=== PATIENT | male | born 1970 | race Caucasian/White ===

== ENCOUNTER 2019-07-03 16:17 | Inpatient (IN) | payer MEDICAID ==
--- OUTSIDE RECORDS SUMMARY | 2019-07-03 17:21 | XMS REPORT | Continuity of Care Document ---
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 alcohol Tobacco Use Start: Unknown Patient has never smoked Recreational Drug Use Former Drug User marijuana Smoking Status Reviewed: 06/24/19 Patient has never smoked Exercise Type/Frequency Exercises regularly Allergies, Adverse Reactions, Alerts Description No Known Drug Allergies Medications Active Medications SIG Qnty Indications Ordering Provider Date Blood Pressure Kit I10 Eleonora Haque, 06/24/2019 Kit Hydroxyzine HCL 1 tablet by mouth Unknown 50mg every 6 hours as Tablets needed for anxiety Magnesium Oxide 1 by mouth once Unknown 400mg daily Capsules Immunizations Description No Information Available Vital Signs Date Vital Result Comment 06/24/2019 4:05pm Height 72 inches 6'0" Weight 150.50 lb Heart Rate 79 /min BP Systolic 154 mmHg 131/87 BP Diastolic 93 mmHg 131/87 Body Temperature 97.9 F O2 % BldC Oximetry 98 % BMI (Body Mass Index) 20.4 kg/m2 Results Test Date Facility Test Result H/L Range Note Laboratory test 06/30/2019 [facility] Free T4 1.32 ng/dL High 0.61-1.[address] ([place] [address] Thyroxine) [phone] T3 Total 181 ng/dL High 87-178 CBC Auto 06/30/2019 [facility] White Blood 5.7 10^3/uL Normal 3.5-10.[address] [place] [address] [phone] Red Blood Count 5.24 10^6/uL Normal 4.18-5.48 Hemoglobin 15.7 g/dL Normal 14.0-18.0 Hematocrit 46 % Normal 42-52 Mean Corpuscular Volume 88 fL Normal 80-94 Mean Corpuscular Hemoglobin 30 pg Normal 27-31 Mean Corpuscular HGB Conc 34 g/dL Normal 31-36 Red Cell Distribution Width 14 % Normal 10-15 Platelet Count 387 10^3/uL Normal 150-450 Mean Platelet Volume 8.0 fL Normal 7.4-10.4 Abs Neutrophils 4.0 10^3/uL Normal 1.5-7.7 Abs Lymphocytes 1.2 10^3/uL Normal 1.0-4.8 Abs Monocytes 0.5 10^3/uL Normal 0-0.8 Abs Eosinophils 0.0 10^3/uL Normal 0-0.6 Abs Basophils 0.0 10^3/uL Normal 0-0.2 Abs Nucleated RBC 0.0 10^3/uL Granulocyte % 70.9 % Lymphocyte % 20.5 % Monocyte % 8.0 % Eosinophil % 0.1 % Basophil % 0.5 % Nucleated Red Blood Cells % 0.1 Urinalysis Profile 06/30/2019 [facility] Urine Color Straw [address] [place] [address] [phone] Urine Appearance Clear Urine Specific [place] 1.004 Low 1.010-1.030 Urine pH 7.0 Normal 5-9 Urine Urobilinogen Negative Negative Urine Ketones Negative Negative Urine Protein Negative Negative Urine Leukocytes Negative Negative Urine Blood Negative Negative Urine Nitrite Negative Negative Urine Bilirubin Negative Negative Urine Glucose Negative Negative Laboratory test 06/30/2019 [facility] Anti Double <pending> finding [address] [place] [address] [phone] TSH Receptor Assay <pending> Thyroid Stimulating Igg (Tsi) <pending> HIV 1&2 p24 06/30/2019 [facility] HIV 4th Nonreactive Nonreactive Screen [address] [place] [address] [phone] Laboratory 06/30/2019 [facility] Erythrocyte 2 mm/Hr Normal 0- 14 test [place] [address] [phone] C Reactive Protein < 1.00 mg/L Normal <8.01 Basic Metabolic 06/25/2019 [facility] Sodium 139 mmol/L Normal 135-145 [place] [address] [phone] Potassium 4.7 mmol/L Normal 3.5-5.0 Chloride 106 mmol/L Normal 101-111 Co2 Carbon Dioxide 28 mmol/L Normal 22-32 Anion Gap 5 mmol/L Normal 2-11 Glucose 99 mg/dL Normal 70-100 Blood Urea Nitrogen 10 mg/dL Normal 6-24 Creatinine 0.66 mg/dL Low 0.67-1.17 BUN/Creatinine Ratio 15.2 Normal 8-20 Calcium 9.7 mg/dL Normal 8.6-10.3 Egfr Non- 129.4 >60 Egfr 156.5 >60 1 Laboratory 06/25/2019 [facility] TSH (Thyroid 0.00 Low 0.34- 5.60 test finding Stim Horm) mcIU/[place] [address] [phone] Lipid Profile 06/25/2019 [facility] Triglycerides 65 mg/dL 2 (Trig/Chol/HDL ) [place] [address] [phone] Cholesterol 174 mg/dL 3 HDL Cholesterol 43.6 mg/dL 4 LDL Cholesterol 117 mg/dL 5 Nuclear AB 06/25/2019 [facility] Nuclear Ab Positive 1:160 Abnormal 6 (Lidia) By Ifa (Lidia) by Ifa, [place] [address] IgG [phone] Lidia Titer: 1:160 Lidia Pattern: Speckled 7 1 Because ethnic data is not always readily available, this report includes an eGFR for both -Americans and non- Americans. The National Kidney Disease Education Program (NKDEP) does not endorse the use of the MDRD equation for patients that are not between the ages of 18 and 70, are , have extremes of body size, muscle mass, or nutritional status, or are non- or non-. According to the National Kidney Foundation, irrespective of diagnosis, the stage of the disease is based on the level of kidney function: Stage Description GFR(mL/min/1.73 m(2)) 1 Kidney damage with normal or decreased GFR 90 2 Kidney damage with mild decrease in GFR 60-89 3 Moderate decrease in GFR 30-59 4 Severe decrease in GFR 15-29 5 Kidney failure <15 (or dialysis) 2 Desirable: <150 Borderline High: 150-199 High: 200-499 Very High: >500 3 Desirable: <200 Borderline High: 200-239 High: >239 4 Low: <40 Desirable: 40-60 High: >60 5 Desirable: <100 Near Optimal: 100-129 Borderline High: 130-159 High: 160-189 Very High: >189 6 REFERENCE VALUE <1:80 (Negative) 7 Test Performed by: [facility] [address] [place] [address] Respite Coordinator: Julio Dickey M.D. Ph.D.; CLIA# [id number] Procedures Description No Information Available Medical Devices Description No Information Available Encounters Description No Information Available Assessments Date Code Description Provider 06/24/2019 I10 Essential (primary) hypertension Eleonora Haque MD 06/24/2019 F33.1 Major depressive disorder, recurrent, moderate Eleonora Haque MD 06/24/2019 F41.1 Generalized anxiety disorder Eleonora Haque MD 06/24/2019 F41.8 Other specified anxiety disorders Eleonora Haque MD Plan of Treatment 06/24/2019 - Eleonora Haque MDI10 Essential (primary) hypertensionNew Medication:Blood Pressure Kit -Comments:Make a log of your blood pressure reading at home and let us know in 2 weeks.Low salt diet and low processed food.F33.1 Major depressive disorder, recurrent, moderateFollow up:as needed.F41.1 Generalized anxiety disorderFollow up:as needed.F41.8 Other specified anxiety disorders Functional Status Description No Information Available Mental Status Description No Information Available Referrals Refer to Reason for Referral Status Appt Date Antione Pichardo MD Patient has new onset Hyperthyroidism. Sent [address] [place] [address] [phone]
--- OUTSIDE RECORDS SUMMARY | 2019-07-03 17:21 | XMS REPORT | Continuity of Care Document ---
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 alcohol Tobacco Use Start: Unknown Patient has never smoked Recreational Drug Use Former Drug User marijuana Smoking Status Reviewed: 07/03/19 Patient has never smoked Exercise Type/Frequency Exercises regularly Allergies, Adverse Reactions, Alerts Description No Known Drug Allergies Medications Active Medications SIG Qnty Indications Ordering Provider Date Propranolol HCL take once tablet 30tabs E05.90 Eleonora Haque, 07/03/2019 10mg twice daily. MD Tablets Methimazole take one tablet E05.90 Eleonora Haque, 07/03/2019 5mg Tablets three times a MD daily. Blood Pressure Kit I10 Eleonora Haque, 06/24/2019 Kit Hydroxyzine HCL 1 tablet by mouth Unknown 50mg every 6 hours as Tablets needed for anxiety Magnesium Oxide 1 by mouth once Unknown 400mg daily Capsules Fluoxetine HCL 1 by mouth every Unknown 40mg day Capsules Lorazepam Take 1/2 To 1 Unknown 1mg Tablets Tablet By Mouth as Needed Up To Three Times Daily Maximum Daily Dose Of 3 Per Day Immunizations Description No Information Available Vital Signs Date Vital Result Comment 07/03/2019 2:45pm Height 72 inches 6'0" Weight 149.00 lb Heart Rate 83 /min BP Systolic 150 mmHg BP Diastolic 86 mmHg Body Temperature 97.9 F O2 % BldC Oximetry 98 % BMI (Body Mass Index) 20.2 kg/m2 06/24/2019 4:05pm Height 72 inches 6'0" Weight 150.50 lb Heart Rate 79 /min BP Systolic 154 mmHg 131/87 BP Diastolic 93 mmHg 131/87 Body Temperature 97.9 F O2 % BldC Oximetry 98 % BMI (Body Mass Index) 20.4 kg/m2 Results Test Date Facility Test Result H/L Range Note Laboratory test 06/30/2019 [facility] Free T4 1.32 ng/dL High 0.61-1.[address] ([place] [address] Thyroxine) [phone] T3 Total 181 ng/dL High 87-178 CBC Auto 06/30/2019 [facility] White Blood 5.7 10^3/uL Normal 3.5-10.[address] [place] [address] [phone] Red Blood Count 5.24 10^6/uL Normal 4.18-5.48 [...] Blood Cells % 0.1 Urinalysis Profile 06/30/2019 [facility] Urine Color Straw [address] [place] [address] [phone] Urine Appearance Clear Urine Specific [place] 1.004 Low 1.010-1.030 Urine pH 7.0 Normal 5-9 Urine Urobilinogen Negative Negative Urine Ketones Negative Negative Urine Protein Negative Negative Urine Leukocytes Negative Negative Urine Blood Negative Negative Urine Nitrite Negative Negative Urine Bilirubin Negative Negative Urine Glucose Negative Negative Laboratory test 06/30/2019 [facility] Anti Double <pending> finding [place] [address] [phone] TSH Receptor Assay <pending> Thyroid Stimulating Igg (Tsi) <pending> HIV 1&2 p24 06/30/2019 [facility] HIV 4th Nonreactive Non[place] [address] [phone] Laboratory 06/30/2019 [facility] Erythrocyte 2 mm/Hr Normal 0- 14 test finding [address] [place] [address] [phone] C Reactive Protein < 1.00 mg/L Normal <8.01 Basic Metabolic 06/25/2019 [facility] Sodium 139 mmol/L Normal 135-145 [place] [address] [phone] Potassium 4.7 mmol/L Normal 3.5-5.0 Chloride 106 mmol/L Normal 101-111 Co2 Carbon Dioxide 28 mmol/L Normal 22-32 Anion Gap 5 mmol/L Normal 2-11 Glucose 99 mg/dL Normal 70-100 Blood Urea Nitrogen 10 mg/dL Normal 6-24 Creatinine 0.66 mg/dL Low 0.67-1.17 BUN/Creatinine Ratio 15.2 Normal 8-20 Calcium 9.7 mg/dL Normal 8.6-10.3 Egfr Non- 129.4 >60 Egfr 156.5 >60 1 Laboratory 06/25/2019 [facility] TSH (Thyroid 0.00 Low 0.34- 5.[address] Stim Horm) mcIU/[place] [address] [phone] Lipid Profile 06/25/2019 [facility] Triglycerides 65 mg/dL 2 (Trig/Chol/HDL [address] ) [place] [address] [phone] Cholesterol 174 mg/dL 3 HDL Cholesterol 43.6 mg/dL 4 LDL Cholesterol 117 mg/dL 5 Nuclear AB 06/25/2019 [facility] Nuclear Ab Positive 1:160 Abnormal 6 (Lidia) By If[facility] [address] (Lidia) by Ifa, [place] [address] IgG [phone] Lidia Titer: 1:160 Lidia Pattern: Speckled 7 [...] VALUE <1:80 (Negative) 7 Test Performed by: [facility] [address] [place] [address] Utilities Estimator And Drafter: Julio Dickey M.D. Ph.D.; CLIA# [id number] Procedures Description No Information Available Medical Devices Description No Information Available Encounters Description No Information Available Assessments Date Code Description Provider 07/03/2019 E05.90 Thyrotoxicosis, unspecified without thyrotoxic Molina Chavis MD crisis or storm 07/03/2019 F33.1 Major depressive disorder, recurrent, moderate Molina Chavis MD 07/03/2019 F41.1 Generalized anxiety disorder Molina Chavis MD 07/03/2019 R03.0 Elevated blood-pressure reading, without Molina Chavis MD diagnosis of hypertension 06/24/2019 I10 Essential (primary) hypertension Eleonora Haque MD 06/24/2019 F33.1 Major depressive disorder, recurrent, moderate Eleonora Haque MD 06/24/2019 F41.1 Generalized anxiety disorder Eleonora Haque MD 06/24/2019 F41.8 Other specified anxiety disorders Eleonora Haque MD Plan of Treatment 07/03/2019 - Molina Chavis MDE05.90 Thyrotoxicosis, unspecified without thyrotoxic crisis or stormNew Medication:Propranolol HCL 10 mg - take once tablet twice daily.Methimazole 5 mg - take one tablet three times a daily.New Labs:Liver Function Panel, Ordered: 07/03/19Comments:Please schedule an appointment with Dr. Pichardo. Start taking your medicine from today.Please get your blood work done today.F33.1 Major depressive disorder, recurrent, moderateComments:Continue taking prozac regularly.It will take 4-6 weeks for the pills to take effect. If you feel like hurting yourself then please go to emergency department.Referral: [facility]/[email or web address] Generalized anxiety disorderComments:Continue taking Prozac daily.R03.0 Elevated blood-pressure reading, without diagnosis of hypertensionComments:Please measure your blood pressure regularly and make a log of it.Please give us a call in 2 weeks about your blood pressure. Functional Status Description No Information Available Mental Status Description No Information Available Referrals Refer to Reason for Referral Status Appt Date [facility] Patient has Major Depression and Created anxiety with hyperthyroidism. No active suicidal thoughts. [address] [place] [address] [phone] Antione Pichardo MD Patient has new onset Hyperthyroidism. Sent [address] [address] [phone]
--- OUTSIDE RECORDS SUMMARY | 2019-07-03 17:21 | XMS REPORT | Continuity of Care Document ---
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 Organized Health Care Education/Training Program Problems Description [...] Result H/L Range Note Laboratory test 06/30/2019 [facility] Free T4 1.32 ng/dL High 0.61-1.[address] ([place] [address] Thyroxine) [phone] T3 Total 181 ng/dL High 87-178 CBC Auto 06/30/2019 [facility] White Blood 5.7 10^3/uL Normal 3.5-10.[address] [place] [address] [phone] Red Blood Count 5.24 10^6/uL Normal 4.18-5.48 [...] Blood Cells % 0.1 Urinalysis Profile 06/30/2019 [facility] Urine Color Straw [address] [place] [address] [phone] Urine Appearance Clear Urine Specific [place] 1.004 Low 1.010-1.030 Urine pH 7.0 Normal 5-9 Urine Urobilinogen Negative Negative Urine Ketones Negative Negative Urine Protein Negative Negative Urine Leukocytes Negative Negative Urine Blood Negative Negative Urine Nitrite Negative Negative Urine Bilirubin Negative Negative Urine Glucose Negative Negative Laboratory test 06/30/2019 [facility] Anti Double <pending> finding [place] [address] [phone] TSH Receptor Assay <pending> Thyroid Stimulating Igg (Tsi) <pending> HIV 1&2 p24 06/30/2019 [facility] HIV 4th Nonreactive Nonreactive [place] [address] [phone] Laboratory 06/30/2019 [facility] Erythrocyte 2 mm/Hr Normal 0- 14 test finding [address] [place] [address] [phone] C Reactive Protein < 1.00 mg/L Normal <8.01 Basic Metabolic 06/25/2019 [facility] Sodium 139 mmol/L Normal 135-145 [place] [address] [phone] Potassium 4.7 mmol/L Normal 3.5-5.0 Chloride 106 mmol/L Normal 101-111 Co2 Carbon Dioxide 28 mmol/L Normal 22-32 Anion Gap 5 mmol/L Normal 2-11 Glucose 99 mg/dL Normal 70-100 Blood Urea Nitrogen 10 mg/dL Normal 6-24 Creatinine 0.66 mg/dL Low 0.67-1.17 BUN/Creatinine Ratio 15.2 Normal 8-20 Calcium 9.7 mg/dL Normal 8.6-10.3 Egfr Non- 129.4 >60 Egfr 156.5 >60 1 Laboratory 06/25/2019 [facility] TSH (Thyroid 0.00 Low 0.34- 5.[address] Stim Horm) mcIU/[place] [address] [phone] Lipid Profile 06/25/2019 [facility] Triglycerides 65 mg/dL 2 (Trig/Chol/HDL [address] ) [place] [address] [phone] Cholesterol 174 mg/dL 3 HDL Cholesterol 43.6 mg/dL 4 LDL Cholesterol 117 mg/dL 5 Nuclear AB 06/25/2019 [facility] Nuclear Ab Positive 1:160 Abnormal 6 (Lidia) By If[facility] [address] (Lidia) by Ifa, [place] [address] IgG [phone] Lidia Titer: 1:160 Lidia Pattern: Speckled 7 [...] VALUE <1:80 (Negative) 7 Test Performed by: [facility] [address] [place] [address] Agency Sales Representative: Julio iDckey M.D. Ph.D.; CLIA# [id number] Procedures Description No Information Available Medical Devices [...] yourself then please go to emergency department.Referral: [facility]/[email or web address] Generalized anxiety disorderComments:Continue taking Prozac daily.R03.0 Elevated blood-pressure reading, without diagnosis of hypertensionComments:Please measure your blood pressure regularly and make a log of it.Please give us a call in 2 weeks about your blood pressure. Functional Status Description No Information Available Mental Status Description No Information Available Referrals Refer to Reason for Referral Status Appt Date [facility] Patient has Major Depression and Created anxiety with hyperthyroidism. No active suicidal thoughts. [address] [place] [address] [phone] Antione Pichardo MD Patient has new onset Hyperthyroidism. Sent [address] [address] [phone]
[2019-07-03 17:38] LABS: Urine Appearance Clear; Urine Bilirubin Negative (Negative); Urine Blood Negative (Negative); Urine Color Yellow; Urine Glucose Negative (Negative); Urine Ketones Negative (Negative); Urine Nitrite Negative (Negative); Urine Protein Negative (Negative); Urine Specific Gravity 1.021 (1.010-1.030); Urine Urobilinogen Negative (Negative)
--- NOTE | 2019-07-03 17:45 | ED ---
Psychiatric Complaint - HPI Summary HPI Summary: Pt is a 48 y/o M presenting to the ED for a psychiatric complaint. Pt saw a BUCKSHOT SWAGE OPERATOR on 07/03/19 who recommended that the pt go to the ED. Pt [place] for [place] problems [place] [facility] and before arriving to the ED. In mid-March, pt reports he began to wish he was and he wants to sleep all the time, but he does not have a plan. Pt states he often cries. Pt admits insomnia that began at the beginning of the summer, but has improved in recent weeks. Once the pt wakes up, he cannot fall back asleep. Pt denies any fever, chills, erythema of eyes, sore throat, CP, SOB, cough, abdominal pain, N/V, dysuria, hematuria, edema, rash, dizziness, or SI. 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 He reports anxiety around being a pilot fuel engineer. Pt states he believes his feelings are associated with recent stress. Pt currently takes Lorazepam and Prozac and was prescribed Propranolol today for an elevated T4 and low TSH level. Pt has a FMHx of Graves disease. Pt does not currently have health insurance. Pt denies substance, alcohol, or tobacco use. - History Of Current Complaint Chief Complaint: EDMentalHealth Time Seen by Provider: 07/03/19 17:21 Hx Obtained From: Patient Onset/Duration: Lasting Weeks, Still Present Timing: Weeks Severity Initially: Moderate Severity Currently: Moderate Aggravating Factor(s): Recent Stress Alleviating Factor(s): Nothing Associated Signs And Symptoms: Positive: Sleep Disturbance - Insomnia Has Suicidal: Denies: Thoughts, With A Plan - Allergies/Home Medications Allergies/Adverse Reactions: Allergies Allergy/AdvReac Type Severity Reaction Status Date / Time No Known Allergies Allergy Verified 07/03/19 23:51 Home Medications: Home Medications Fluoxetine HCl [Prozac] 40 mg PO DAILY 07/03/19 [History Confirmed 07/03/19] LORazepam [Lorazepam] 0.5 - 1 mg PO TID PRN 07/03/19 [History Confirmed 07/03/19 ] PMH/Surg Hx/FS Hx/Imm Hx Previously Healthy: Yes Endocrine/Hematology History: Reports: Hx Thyroid Disease Denies: Hx Diabetes Cardiovascular History: Denies: Hx Hypertension Sensory History: Denies: Hx Legally Blind Opthamlomology History: Denies: Hx Legally Blind EENT History: Denies: Hx Deafness - Surgical History Surgical History: None Surgery Procedure, Year, and Place: None Infectious Disease History: No Infectious Disease History: Denies: Traveled Outside the [place] in Last 30 Days - Family History Known Family History: Positive: Other - Grave's disease Negative: Diabetes - Social History Alcohol Use: Weekly Substance Use Type: Reports: None Smoking Status (MU): Never Smoked Tobacco Review of Systems Negative: Fever, Chills Negative: Erythema Negative: Sore Throat Negative: Chest Pain Negative: Shortness Of Breath, Cough Negative: Abdominal Pain, Vomiting, Nausea Negative: dysuria, hematuria Negative: Edema Negative: Rash Neurological: Other - Negative dizziness Positive: Anxious, Other - Insomnia All Other Systems Reviewed And Are Negative: Yes Physical Exam - Summary Physical Exam Summary: Constitutional: Well-developed, Well-nourished, Alert. Anxious-appearing. Skin: Warm, Dry HENT: Normocephalic; Atraumatic Eyes: Conjunctiva normal Neck: Musculoskeletal ROM normal neck. (-) JVD, (-) Stridor, (-) Tracheal deviation Cardio: Rhythm regular, rate normal, Heart sounds normal; Intact distal pulses; The pedal pulses are 2+ and symmetric. Radial pulses are 2+ and symmetric. (-) Murmur Pulmonary/Chest wall: Effort normal. (-) Respiratory distress, (-) Wheezes, (-) Rales Abd: Soft, (-) tenderness, (-) Distension, (-) Guarding, (-) Rebound Musculoskeletal: (-) Edema Lymph: (-) Cervical adenopathy Neuro: Alert, Oriented x3 Psych: Mood and affect Normal Triage Information Reviewed: Yes Vital Signs On Initial Exam: Initial Vitals Temp Pulse Resp BP Pulse Ox 97.9 F 91 16 174/111 100 07/03/19 16:18 07/03/19 16:18 07/03/19 16:18 07/03/19 16:18 07/03/19 16:18 Vital Signs Reviewed: Yes Procedures - Sedation Patient Received Moderate/Deep Sedation with Procedure: No Diagnostics - Vital Signs Vital Signs Temp Pulse Resp BP Pulse Ox 07/03/19 16:18 97.9 F 91 16 174/111 100 - Laboratory Lab Results: Lab Results 07/03/19 Range/Units 17:00 Urine Color Yellow Urine Appearance Clear Urine pH 6.0 (5-9) Ur Specific [place] 1.021 (1.010-1.030) Urine Protein Negative (Negative) Urine Ketones Negative (Negative) Urine Blood Negative (Negative) Urine Nitrate Negative (Negative) Urine Bilirubin Negative (Negative) Urine Urobilinogen Negative (Negative) Ur Leukocyte Esterase Negative (Negative) Urine Glucose Negative (Negative) Lab Statement: Any lab studies that have been ordered have been reviewed, and results considered in the medical decision making process. Course/Dx - Course Course Of Treatment: Pt is a 48 y/o M presenting to the ED for a psychiatric complaint. Pt saw a BUCKSHOT SWAGE OPERATOR on 07/03/19 who recommended that the pt go to the ED. Pt had a checkup for thyroid problems [place] [facility] and before arriving to the ED. In mid -March, pt reports he began to wish he was and he wants to sleep all the time, but he does not have a plan. Pt states he often cries. Pt admits insomnia that began at the beginning of the summer, but has improved in recent weeks. Once the pt wakes up, he cannot fall back asleep. Pt denies any fever, chills, erythema of eyes, sore throat, CP, SOB, cough, abdominal pain, N/V, dysuria, hematuria, edema, rash, dizziness, or SI. 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 He reports anxiety around being a pilot fuel engineer. Pt states he believes his feelings are associated with recent stress. Pt currently takes Lorazepam and Prozac and was prescribed Propranolol today for an elevated T4 and low TSH level. PT has a FMHx of Grave s disease. Pt does not currently have health insurance. Pt denies substance, alcohol, or tobacco use. On exam, pt is anxious appearing. Pt will be signed out to Dr. Gil at 19:00 on 07/03/19. - Differential Dx/Clinical Impression Provider Diagnosis: Acute depression Discharge ED - Sign-Out/Discharge Documenting (check all that apply): Sign-Out Patient Signing out patient TO: Garry Gil - 19:00 - Discharge Plan Condition: Improved Disposition: [place]CHIATRIC FAC[place] [place] Billing Disposition and Condition Condition: IMPROVED Disposition: Psychiatric Facility [facility] - Attestation Statements Document Initiated by Scribe: Yes Documenting Scribe: Letha Díaz Provider For Whom Scribe is Documenting (Include Credential): Kaiden Hannah MD. Scribe Attestation: Letha Metzger, mced for Kaiden Hannah MD. on 07/21/19 at 1036. Scribe Documentation Reviewed: Yes Provider Attestation: The documentation as recorded by the Letha vines accurately reflects the service I personally performed and the decisions made by Kaiden daniel MD. Status of Scribe Document: Viewed
[2019-07-03 18:00] LABS: Urine Benzodiazepine Screen None Detected (None Detect); Urine Opiates Screen None Detected (None Detect)
--- NOTE | 2019-07-03 19:26 | ED ---
Progress - Progress Note Progress Note: This pt is a sign out to Dr. Gil from Dr. Hannah at shift change 1900 pending a MHE and disposition. - Consult/PCP Time Called: 17:44 Course/Dx - Course Course Of Treatment: This pt is a sign out to Dr. Gil from Dr. Hannah at shift change 1900 07/03/19 pending a MHE and disposition. This pt was admitted voluntarily to [facility] [place]. Song, psychiatrist, at 1943 for an acute depressive episode. - Diagnoses Provider Diagnoses: Acute depression - Provider Notifications Discussed Care Of Patient With: Michael Song Time Discussed With Above Provider: 19:49 Instructed by Provider To: Admit As Inpatient - voluntarily Admit/Transition Orders Completed By ED Provider: Yes Discharge ED - Sign-Out/Discharge Documenting (check all that apply): Patient Departure - admitted voluntarily - Discharge Plan Condition: Stable Disposition: [place]CHIATRIC FAC[place] [place] Billing Disposition and Condition Condition: STABLE Disposition: Psychiatric Facility [facility] - Attestation Statements Document Initiated by Scribe: Yes Documenting Scribe: Alfredo Christiansen Provider For Whom Scribe is Documenting (Include Credential): Garry Gil MD Scribe Attestation: Alfredo Metzger, scribed for Garry Gil MD on 07/04/19 at 0457. Scribe Documentation Reviewed: Yes Provider Attestation: The documentation as recorded by the Alfredo vines accurately reflects the service I personally performed and the decisions made by me, Garry Gil MD Status of Scribe Document: Viewed Procedures - Sedation Patient Received Moderate/Deep Sedation with Procedure: No
[2019-07-03] MEDS ORDERED: LORazepam TAB(*) 1 MG ONE (23:04)
[2019-07-03] MEDS ORDERED: Al Hydrox/Mg Hydrox/Simet LIQ* 30 ML UDC PO PRN (23:41)
[2019-07-03] MEDS ORDERED: Acetaminophen TAB* 325 MG PO PRN (23:41)
[2019-07-04] MEDS: LORazepam TAB(*) 1 MG PO PRN ×2 (01:10→09:36)
[2019-07-04] MEDS ORDERED: Influenza VAC *QUAD* 2019-20* 0.5 ML SYRINGE IM ONE (09:00)
[2019-07-04] MEDS: Vitamin THERAPEUTIC TAB PO SCH (09:32)
[2019-07-04] MEDS: FLUoxetine CAP* 20 MG PO SCH (09:32)
[2019-07-04] MEDS: amLODIPine TAB* 5 MG PO SCH (13:43)
[2019-07-04] MEDS: LORazepam TAB(*) 1 MG PO SCH ×4 (13:44→20:01)
--- NOTE | 2019-07-04 21:56 | HP ---
HISTORY AND PHYSICAL: DATE OF ADMISSION: 07/03/19 SUPERVISING PSYCHIATRIST: Dr. Jon Ware.* (DICTATED BY SYED ANTUNEZ NP) JUSTIFICATION FOR ADMISSION: The patient presented to the emergency department with debilitating anxiety. He merits hospitalization for immediate safety and stabilization. CHIEF COMPLAINT: "I am crying most of the time. I am more than sad most days. " HISTORY OF PRESENT ILLNESS: Molina is a 48-year-old white male, domiciled, unemployed, , father of 11-year-old daughter, who presented to the emergency department at the suggestion of his psychiatric nurse practitioner. He has been increasingly anxious and depressed so much so that he has been not able to leave the home or interact with other people. He presented severely anxious. He has racing thoughts and rapid speech. He and his in 2013 due to his extramarital affairs. 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 He was using income from the divorce to live on, but that ended in the end of 2017. 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 Due to [facility] regulations, he is not allowed to fly and be on any medications. In the past, he has been in counseling with Rosa Taylor, Ph.D., and VERENA GardnerW. He is not currently in counseling per se, but has been seen Holly Barber intermittently for medication management and brief therapy. He reports that since March of this year he is starting to realize more so that he is and this is a historic realization for him. He states that he is often paralyzed due to anxiety and if not anxious, then he is kind. He states that he has difficulty sleeping. He often wakes up screaming and crying. He states that friends have been helpful and are worried about him. He endorses feeling anguish most of the time. He reports hating where he lives, being afraid to be alone. He reports he is lamenting being and having a child together in the same home. The patient recently was to start a new job at [employer]. He states that he did not plan to be where he is at this point of his life. He endorses extreme guilt and shame, hopelessness, and helplessness. He has passive wish and fleeting thoughts of suicide. He endorses feeling irritable most of the time. He is very angry. He states, "I have got nothing. I have got nowhere to go." PAST PSYCHIATRIC HISTORY: The patient denies history of psychiatric hospitalization. He reports he and his went to a couples therapy once. He has seen a private therapist in the area in the past including Osman Camacho LCSW, Rosa Taylor, Ph.D. Primary care provider Dr. Marcos Aldrich in the past has prescribed alprazolam, Wellbutrin, Lexapro, Celexa, and Prozac. TRAUMA/ABUSE HISTORY: PAST MEDICAL HISTORY: The patient recently saw Dr. Chavis at [facility]. They are monitoring him for primary hypertension and he has been referred to Dr. Pichardo, capper machine operator, for hypothyroidism. Holly Barber, psychiatric nurse practitioner, has prescribed him hydroxyzine in the past and is currently prescribing lorazepam 0.5 mg 1 to 2 up to 3 times a day as needed for anxiety and fluoxetine was recently increased from 20 to 40 mg daily. FAMILY PSYCHIATRIC HISTORY: The patient reports a vague history of anxiety in the family and the maternal aunt with schizophrenia or bipolar disorder. SOCIAL HISTORY: Molina has always been intellectually advanced. He started college at age 17 and graduated from the [employer]. 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 His parents are . He has a younger sister and they all live in [place], [place]. The patient met his ex- while in college. Her job brought her to [place] and they have lived here since approximately 2007. He said that he and she never planned on having children and unbeknownst to him, she stopped taking contraception. They conceived in 2007. Their daughter is now 11 years old and Molina lives in an apartment nearby their home. SUBSTANCE USE: The patient reports a history of binge drinking in college and after his divorce. He denies alcohol as problematic. Recently, he states he drinks approximately once a week, 3 to 5 drinks of beer and/or tequila. He reports history of marijuana, mushroom, and LSD use while in college, denies recently. Denies tobacco use. REVIEW OF SYSTEMS: Constitutional: Negative. No fever, chills or fatigue. ENT: Negative. Cardiovascular: Negative. Denies chest pain or palpitations. Respiratory: Negative. Denies shortness of breath or cough. Genitourinary: Negative. Musculoskeletal: Negative. Neurological: Negative. PHYSICAL EXAMINATION GENERAL: The patient is tall, thin-framed, and well-appearing and well- nourished. VITAL SIGNS: Height 6 feet, weight 150 pounds, T 97.8, P 87, RR 16, O2 saturation 99% on room air, BP 124/84. HEENT: Head and Face: Normal head and face inspection. Eyes: Positive EOMI. PERRLA. Conjunctivae clear. NECK: Supple. Full ROM. Trachea midline. RESPIRATORY: Lung sounds clear to auscultation, breath sounds present. CARDIOVASCULAR: Heart RRR. Pulses are symmetrical in both upper and lower extremities. MUSCULOSKELETAL: Normal strength. ROM intact. NEUROLOGICAL: Normal sensory and motor intact. Alert and oriented x3 with normal gait. Cerebellar function intact. SKIN: Warm, dry. Color reflects adequate perfusion. MENTAL STATUS EXAM: The patient is a tall, thin-framed, 48-year-old white male who appears his stated age. He is adequately groomed, casually dressed in his own clothing with shaved head. He is alert and oriented x3. He appears to be a good historian. Eye contact is good. Speech is rapid with normal volume, elevated at times, spontaneous. Concentration is poor. Memory is 3/3. Mood is anxious with tearful affect. No abnormal psychomotor activity noted. Thought process is circumstantial, overinclusive. Thought content was positive for passive wish. He denies auditory or visual hallucinations. Insight and judgement are poor. He appears to have a high average intellect by virtue of educational attainment and fund of knowledge is adequate. DIAGNOSES: Generalized anxiety disorder, adjustment disorder with disturbance in mood, hypothyroidism, rule out primary hypertension. ASSESSMENT: Molina is a 48-year-old white male, , unemployed, domiciled. He is severely anxious and depressed with impaired insight. He presented to the emergency room due to decrease in functioning and paralyzing anxiety. He and his 5 years ago and in the past year he has been experiencing worsening anxiety along with severe financial strain. He recently started seeing a primary care provider and is being referred to capper machine operator for hypothyroidism. PLAN/RECOMMENDATIONS: The patient is admitted to adult behavioral services unit on voluntary status. Code status is full. He is placed on 15-minute checks for safety. He is encouraged to participate in supportive milieu, individual sessions with staff, and psychoeducational groups. He is working on an MMPI, which will assist in diagnostic clarification. I have changed lorazepam to 1 mg 3 times a day to assist in alleviating anxiety. We will continue fluoxetine 40 mg. Estimated length of stay is 3 to 5 days. Discharge planning will include outpatient providers. SYED ANTUNEZ NP [id number]/CPS #: [id number] PAULA
[2019-07-05] MEDS: LORazepam TAB(*) 1 MG PO SCH ×4 (01:08→20:08)
[2019-07-05] MEDS: FLUoxetine CAP* 20 MG PO SCH (09:06)
[2019-07-05] MEDS: Vitamin THERAPEUTIC TAB PO SCH (09:09)
[2019-07-05] MEDS: amLODIPine TAB* 5 MG PO SCH (09:37)
--- NOTE | 2019-07-05 17:38 | PN ---
Subjective - Subjective Date of Service: 07/05/19 Service Type: 81800 Hosp care 15 min low complexity Subjective: Alfreda reports continued anxiety, but improved since learning he would not be discharged on Sunday. Looking to get started with treatment prescribed by Dr Chavis for hyperthyroidism with TSH 0 and T3/free T4 values only 10-20% beyond normal range. Sleeping adequately with Ativan at bedtime. Mood better today. Worried mostly about staying here. Objective - General Observations Appearance: Neat, Well Groomed Appears Stated Age: Yes Stature: WNL Posture: WNL Eye Contact: Average Behavior/Activity: WNL - Interaction Observations Attitude Towards Examiner: Cooperative Stated Mood: Anxious - - "a little worried" Affect: Full Speech Pattern/Tone: Clear, Appropriate, Normal Volume Thought Process: Coherent, Goal Directed Perception: WNL Thought Content: WNL Hallucination Type: None Delusion Type: None - Cognitive Function Orientation: A&O x 4 Level of Consciousness: Awake, Alert, Appropriate Cognition: WNL Estimated Intelligence: Above Normal Insight: WNL Judgment Within Normal Limits: Yes - Group Participation Participates in Group Activities: Yes Assessment - Assessment Merits Inpatient Hospitalization: Consolidate Improvements, For Discharge Planning Clinical Impression: Alfreda reports having been admitted for feeling incredibly sad and anxious, but denies any dangerous intent or plan. Had been worried about how long he would be hospitalized. Hyperthyroidism likely plays a role in psychiatric presentation. Has been sad over divorce, misses the support of his . Presents with mildly pressured speech, reports he has for years been told to slow down a lot. 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 Plan - Plan Treatment Plan: Name: ALFREDA JONES Birthdate: 1970 [id number] Continue current meds. Med consult to guide initiating therapy against hyperthyroidism. Support in coping with continued stay against expectations. Continued Medication Management: Continue Outpt Medication Medications: Current Medications Acetaminophen (Tylenol Tab*) 650 mg PO Q4H PRN PRN Reason: PAIN or TEMP > 101 F Al Hydrox/Mg Hydrox/Simethicone (Maalox Plus*) 30 ml PO Q4H PRN PRN Reason: INDIGESTION Amlodipine Besylate (Norvasc Tab*) 5 mg PO DAILY [facility] Last Admin: 07/05/19 09:37 Dose: Not Given Fluoxetine HCl (Prozac Cap*) 40 mg PO DAILY [facility] Last Admin: 07/05/19 09:06 Dose: 40 mg Lorazepam (Ativan Tab(*)) 1 mg PO TID [facility] Last Admin: 07/05/19 13:33 Dose: 1 mg Multivitamins (Theragran Tab*) 1 tab PO DAILY [facility] Last Admin: 07/05/19 09:09 Dose: 1 tab - Discharge Plan Discharge Plan: Outpatient Follow Up
--- NOTE | 2019-07-05 18:22 | PN ---
Progress Note - Progress Note Date of Service: 07/05/19 Note: Cancelled consult re hyperthyroidism after speaking with Dr Chavis. Ordered methimazole 5 mg TID, propranolol 10 mg BID.
[2019-07-05] MEDS: Methimazole TAB* 5 MG PO SCH (20:08)
[2019-07-05] MEDS: Propranolol TAB* 10 MG PO SCH (20:09)
[2019-07-06] MEDS: amLODIPine TAB* 5 MG PO SCH (08:33)
[2019-07-06] MEDS: Vitamin THERAPEUTIC TAB PO SCH (08:34)
[2019-07-06] MEDS: Propranolol TAB* 10 MG PO SCH ×2 (08:34→20:21)
[2019-07-06] MEDS: FLUoxetine CAP* 20 MG PO SCH (08:34)
[2019-07-06] MEDS: Methimazole TAB* 5 MG PO SCH ×3 (08:34→20:20)
[2019-07-06] MEDS: LORazepam TAB(*) 1 MG PO SCH ×3 (08:34→20:20)
[2019-07-07 09:00] VITALS: BP 141/97
[2019-07-07] MEDS: amLODIPine TAB* 5 MG PO SCH (09:19)
[2019-07-07] MEDS: LORazepam TAB(*) 1 MG PO SCH (09:20)
[2019-07-07] MEDS: Propranolol TAB* 10 MG PO SCH (09:20)
[2019-07-07] MEDS: Vitamin THERAPEUTIC TAB PO SCH (09:20)
[2019-07-07] MEDS: FLUoxetine CAP* 20 MG PO SCH (09:21)
[2019-07-07] MEDS: Methimazole TAB* 5 MG PO SCH (09:21)
--- NOTE | 2019-07-07 09:43 | DCNOTE ---
Subjective - Subjective Service Types: 40345 Hosp DC Day Mgmt simple under 30 min Discharge Date: 07/07/19 Subjective: Patient reports improvement in racing thoughts and anxiety. He denies SI or passive wish. He states feeling much relief due to having met with health resident care aide. He reports readiness for discharge. Objective - General Observations Appearance: Well Groomed Stature: Thin Posture: WNL Eye Contact: Average Behavior/Activity: WNL - Interaction Observations Attitude Towards Examiner: Cooperative Stated Mood: Euthymic Affect: Bright Speech Pattern/Tone: Clear, Appropriate, Normal Volume Thought Process: Coherent, Goal Directed Perception: WNL Thought Content: WNL Hallucination Type: None Delusion Type: None - Cognitive Function Orientation: A&O x 4 Level of Consciousness: Alert Cognition: WNL Estimated Intelligence: Normal Insight: WNL Judgment Within Normal Limits: Yes - Medication Compliance Cooperative with Inpatient Medication Regimen: Yes - Group Participation Participates in Group Activities: Yes DC Assessment - Assessment Clinical Impression: Micah reports having been admitted for feeling incredibly sad and anxious, but denies any dangerous intent or plan. Had been worried about how long he would be hospitalized. Hyperthyroidism likely plays a role in psychiatric presentation. Has been sad over divorce, misses the support of his . Presents with mildly pressured speech, reports he has for years been told to slow down a lot. Patient stabilized in this structured setting. Merits Inpatient Hospitalization: No Clear for Discharge: Adequate Clinical Respons, Acceptable Safety Profile Inpatient DSM-V Dx: F41.1 Discharge Planning - Discharge Planning Discharge Plan: Outpatient Follow Up [facility] Recommendations for Continuing Care: Medication Management, Psychotherapy, Primary Care Followup, Specialty Followup Medications: Current Medications Fluoxetine HCl (Prozac Cap*) 40 mg PO DAILY [facility] Last Admin: 07/07/19 09:21 Dose: 40 mg Lorazepam (Ativan Tab(*)) 1 mg PO BID prn anxiety Last Admin: 07/07/19 09:20 Dose: 1 mg Methimazole (Tapazole Tab*) 5 mg PO TID [facility] Last Admin: 07/07/19 09:21 Dose: 5 mg Multivitamins (Theragran Tab*) 1 tab PO DAILY [facility] Last Admin: 07/07/19 09:20 Dose: 1 tab Propranolol HCl (Inderal Tab*) 10 mg PO BID [facility] Last Admin: 07/07/19 09:20 Dose: 10 mg Discharge Planning: Prescriptions provided for discharge [x] Yes [] No Follow up care details as per social work arrangements: [facility] primary care Patient response to discharge plan: [x] eager for discharge [x] agreeable with discharge plan [] ambivalent about discharge [] disagrees with discharge today
--- NOTE | 2019-07-08 03:36 | DS ---
CC: Dr. Molina Chavis; Holly Barber; [facility] * DISCHARGE SUMMARY: DATE OF ADMISSION: 07/03/19 DATE OF DISCHARGE: 07/07/19 SUPERVISING PSYCHIATRIST: Dr. Jon Ware.* (DICTATED BY DEENA MEJIA) DISCHARGE DIAGNOSES: General anxiety disorder, hyperthyroidism, hypertension. CONDITION AT THE TIME OF DISCHARGE: Improved. The patient denies suicidal ideation or passive wish. He reports improvement in racing thoughts and anxiety. He states he is feeling much really due to having met with the healthcare navigator. He reports readiness for discharge. The patient is discharged to home. MENTAL STATUS EXAMINATION: Micah is a tall, thin, 48-year-old white male who appears stated age. He is well groomed, casually dressed in his own clothing. He has a shaved head and is wearing reading glasses. Eye contact is good. He is alert and oriented x3. Speech is soft, articulate, and spontaneous. His mood is euthymic. Affect is bright. He is cooperative. Thought process is coherent and goal directed. Thought content is negative for SI or passive wish. He denies HI or . There are no perceptual disturbances noted. Concentration is good. Memory 3/3. Estimated intelligence is normal. Insight and judgment are fair, improved. Fund of knowledge is excellent. INSTRUCTIONS GIVEN TO THE PATIENT: A. Medications: 1. Fluoxetine 40 mg p.o. daily. 2. Lorazepam 1 mg p.o. 1/2 to 1 tablet b.i.d. p.r.n. anxiety. 3. Methimazole 5 mg p.o. t.i.d. 4. Multivitamin 1 tab daily. 5. Propranolol 10 mg p.o. b.i.d. These were sent to [facility]. B. Diet: Regular. C. Activity: Ambulation as tolerated. Tobacco cessation is not applicable. There are no pending labs or diagnostic studies, and he is referred to primary care and Endocrinology for any further diagnostic testing. D. Followup care: The patient will follow up with Holly Barber as his psychiatric nurse practitioner. He will continue with the intake at [facility] for continuing therapy and was also given referral information for [facility] should [facility] not work out for him, and he is to follow up with [facility], which he is aware of, for hypothyroidism. E. Substance use followup is not applicable. HOSPITAL COURSE: Part A. Reason for admission: The patient presented to the emergency department on the evening of 07/03/19 with debilitating anxiety and passive suicidal ideations. HISTORY OF PRESENT ILLNESS: Molina is a 48-year-old white male, domiciled, unemployed, , father of an 11-year-old daughter who presented to the emergency department at the suggestion of his psychiatric nurse practitioner. He has been increasingly anxious and depressed so much so that he has not been able to leave home or interact with other people. He presented as severely anxious. He has racing thoughts and rapid speech. He and his in 2013 due to his extramarital affairs. 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 He was using income from the divorce to live on, but that ended in the end of 2017. 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 Due to [facility] regulation, he is not allowed to fly and be on any medications. In the past, he has been in counseling with Rosa Martinez, Ph.D., and Osman Camacho, AUT[employer]OTIVE [employer]. He is not currently in counseling per se, but has been seeing Holly Ross intermittently for medication management and brief therapy. He reports that since March of this year he is starting to realize more so that he is and this is a deal realization for him. He states he is often paralyzed due to anxiety. He states he has difficulty sleeping. He often wakes up screaming and crying. He states that friends have been helpful and told him that they are worried about him. He endorses feeling anguish most of the time. He reports hating where he lives and being afraid to be alone. He reports he is lamenting being and having a child together in the same home. The patient recently was to start a new job at [employer]. He states he did not plan to be where he is at this point of his life. He endorses extreme guilt and shame, hopelessness, and helplessness. He has passive wish and fleeting thoughts of suicide. He endorses feeling irritable most of the time. He presents angry. He states, "I have got nothing. I have got nowhere to go." Part B. Psychiatric treatment rendered: The patient was admitted to the adult behavioral services unit on voluntary status. Code status was full. He was placed on 15-minute checks for safety. He was encouraged to participate in supportive milieu, individual sessions with staff, and psychoeducational groups. He started working on an MMPI and discussed the results with psychologist Dr. Josh De La Fuente. He was recently seen at [facility] for abnormal thyroid labs. Dr. Chavis was contacted and the patient was started on methimazole as well as propranolol for hypertension. The patient refused the amlodipine that was ordered. We increased lorazepam to schedule t.i.d. while in the hospital. The patient was hyperactive and hyperverbal. He reported need to be discharged and was informed of the 72-hour notice. He was also encouraged to utilize hospitalization as a place to be safe and gain some skills. The patient met with the healthcare navigator and was started on Medicaid, which is going to help drastically due to his lack of income and recent medical bills. On the day of discharge, the patient reported readiness for discharge, he continues to deny suicidal ideation or passive wish. He reported desire to be discharged as soon as possible and reported concern for decompensation if admission continues. SYED ANTUNEZ NP [id number]/CPS #: [id number] PAULA
== END 2019-07-07 11:00 | disposition home or self-care (01) | DRG 756 ==
LOC: ED 16:17 → BSU 20:21
PROVIDERS: ADMIT Psychiatry & Neurology Psychiatry; ATTEND Psychiatry & Neurology Psychiatry
DX: F41.1 Generalized anxiety disorder (principal); R45.851 Suicidal ideations; I10 Essential (primary) hypertension; E03.9 Hypothyroidism, unspecified; F43.24 Adjustment disorder with disturbance of conduct; Z79.899 Other long term (current) drug therapy; Z81.8 Family history of other mental and behavioral disorders
CPT/HCPCS: 80307; 81003; 99222; 99231; 99284; A9270-GY